=== PATIENT | female | born 1980 | race African-American/Black ===

== ENCOUNTER 2024-12-28 20:07 | Emergency (ER) | payer MEDICAID ==
[~2024-12-28] VITALS: Ht 165.1 cm; Wt 101.0 kg
[2024-12-28 20:47] VITALS: O2SAT 100
[2024-12-28] MEDS ORDERED: BO1 TP (21:55)
[2024-12-28] MEDS: ACETAMINOPHEN 325MG TABLET PO ONE (22:14)
[2024-12-28] MEDS: BACITRACIN ZINC OINT UDPKT TOP ONE (22:14)
[2024-12-28] MEDS: TETANUS, DIPHTHERIA, PERTUSSIS VAC/PF 0.5ML (>10YR OLD) IM ONE (22:15)
[2024-12-28 22:29] VITALS: BP 132/86; PULSE 99; RESP 16; TEMP 36.6; O2SAT 100
== END 2024-12-28 21:59 | disposition home or self-care (01) ==
LOC: ER 20:07
DX: T24.212A Burn of second degree of left thigh, initial encounter (principal); X58.XXXA Exposure to other specified factors, initial encounter; Y93.89 Activity, other specified; Y92.89 Other specified places as the place of occurrence of the external cause; Y99.8 Other external cause status
CPT/HCPCS: 90715; 90471; 99283; Z7610; 16000

== ENCOUNTER 2024-12-31 05:34 | Emergency (ER) | payer MEDICAID ==
[~2024-12-31] VITALS: Ht 165.1 cm; Wt 107.1 kg
[~2024-12-31 05:34] MED LIST: BO1 TP
[2024-12-31 05:42] VITALS: O2SAT 98
[2024-12-31] MEDS ORDERED: TRIMO EACHEYE (09:36)
[2024-12-31 09:43] VITALS: BP 130/82; PULSE 98; RESP 14; TEMP 37; O2SAT 98
== END 2024-12-31 09:58 | disposition home or self-care (01) ==
LOC: ER 05:34
DX: H10.9 Unspecified conjunctivitis (principal); Z79.899 Other long term (current) drug therapy
CPT/HCPCS: 99283